=== PATIENT | female | born 1975 | race Hispanic/Latino ===

== ENCOUNTER → 2016-05-25 | Day surgery (SDC) | payer OTHER ==
--- NOTE | 2016-05-22 13:25 | History & Physical Pre-Op ---
General Information and HPI History of Present Illness: Mrs. Deleon is a 40-year-old female with a long-standing was complaining of heel pain and a painful bunion right foot. The patient has undergone an extended course of conservative care, including shoe gear and activity modification, rest , immobilization and courses of NSAIDs. None of this is yielded her any significant relief. The patient presents today for preoperative surgical consultation. The patient was referred to our office from Reese Peterson DPM. Past History Medical History Cardiovascular: hypertension Endocrine: diabetes Surgical History Pertinent Surgical History: non-contributory Review of Systems Review of Systems: Review of systems unremarkable except for that noted in history of present illness Exam & Diagnostic Data Physical Exam: Lungs clear bilaterally. Heart sounds rate and rhythm regular. Lower extremity physical exam demonstrates intact pedal pulses bilaterally. Pulses dorsalis pedis and posterior tibial arteries are palpable bilaterally. Patient without any sensory motor deficits. Deep tendon reflexes grossly intact. Patient noted to have same and pain with palpation of plantar medial heel right. Ankle range of motion noted to be diminished, especially in dorsiflexion. Negative Tinel sign noted with percussion the posterior tibial nerve. Painful bunion right foot. Hallux is noted to be tracking in track bound. Pain with palpation and range of motion to the first metatarsophalangeal joint right. Assessment/Plan Assessment/Plan: Plantar fasciitis and painful bunion right foot. A lengthy discussion reviewing both surgical and conservative options was held the patient at bedside and the patient elected to go forward surgery despite the risks. As Ranked By This Provider Problem List: 1. Acquired hallux valgus of right foot Attending MD Review Statement Attending Statement Attending MD Statement: examined this patient
[~2016-05-25] VITALS: Ht 157.5 cm; Wt 78.0 kg
[~2016-05-25] MED LIST: GLUCOPHAGE1000 M1 PO; LANTUS SOL100 UNIT/1; LOSARTAN POTASS50 M1 PO; PROAIR HFA8.5 GM INH; TRULICITY0.75 MG/01
--- NOTE | 2016-05-25 14:09 | Operative Report ---
Operative/Inv Procedure Report Surgery Date: 05/25/16 Name of Procedure: 1. Bunionectomy right foot 2 plantar fasciotomy right foot Pre-Operative Diagnosis: 1 hallux valgus right foot 2 plantar fasciitis right foot Post-Operative Diagnosis: The same Estimated Blood Loss: scant Surgeon/Pulpwood Cutter: JAMISON TALAVERA DPM, DPM Anesthesia: moderate sedation, block Operative/Procedure Note Note: After obtaining informed consent the patient was brought to the operating room and placed on the operating table in the supine position. The patient isn't securely fastened to the operating table utilizing safety belt. After administration of IV sedation, 10 mL of 0.5% Marcaine plain was infiltrated about the patient's right ankle. A well-padded ankle tourniquet was placed about the patient's right lower extremity. 2 g of Ancef were delivered intravenously times one dose. The right foot and ankle within scrubbed prepped and draped in the usual aseptic manner. Right lower extremity was then elevated to exsanguinate the limb, which point the ankle tourniquet was inflated 250 mmHg. Digits was directed the plantar medial heel, where portals were developed with a sterile 62 K wire at 5 mm intervals along the origin on the medial slip of the plantar fascia. Following this, the [employer] micro-ablator was utilized to deliver 4 W of radiofrequency energy along the marked out pattern. Attention was then directed to the dorsomedial aspect the right foot, where a 6 cm linear incision was made just medial to the course of the extensor hallucis longus tendon. Skin was incised with a 15 blade and deepened subtenons tissues. All vital neurovascular structures were identified protected. An inverted L capsulotomy was performed exposing the medial eminence. The medial eminence was then removed with a sagittal bone saw. Attention was then directed to the interspace, where a lateral release was performed with resection of the fibular suspensory ligament and the oblique head of the abductor hallucis tendon. The extensor hallucis brevis tendon was identified and tenotomized. A Chevron type osteotomy was then performed and the capital fragment was translated laterally and impacted upon the metatarsal shaft. It was then stabilized utilizing standard AO fixation techniques. The medial shelf was then remodeled in the wound was irrigated with copious Svensson normal sterile saline. The capsular structures were reapproximated with 3-0 Vicryl and the subcutaneous tissues reapproximated 4-0 Vicryl. The skin edges were then reapproximated with 4-0 Monocryl. The incision was dressed with Steri-Strips Xeroform 4 x 4's Kerlix and an Victor Manuel wrap. The patient was noted tolerate both procedure and anesthesia well and the patient was transported from the operating room to recovery by sent stable best assess intact all digits right foot.
== END ==
LOC: STS 03:57
DX: M20.11 Hallux valgus (acquired), right foot (principal); M72.2 Plantar fascial fibromatosis; E11.9 Type 2 diabetes mellitus without complications; Z79.84 Long term (current) use of oral hypoglycemic drugs; I10 Essential (primary) hypertension
CPT/HCPCS: 81025; 88304; J0690; J2001; J2250

== ENCOUNTER → 2016-09-28 | Day surgery (SDC) | payer OTHER ==
--- NOTE | 2016-09-25 12:33 | History & Physical Pre-Op ---
General Information and HPI History of Present Illness: Ms. Deleon is a 40-year-old female with a long-standing and worsening complaint of painful hardware right foot. The patient has undergone an extended course of conservative care, including shoe gear and activity modification, rest, immobilization, local steroid injections and NSAIDs. None of this is yielded her any significant relief. The patient presents today for preoperative surgical consultation. Allergies/Medications Allergies: Coded Allergies: Penicillins (? 09/22/16) Home Med list Albuterol Sulfate (Proair Hfa) 90 MCG HFA.AER.AD 2 PUF INH Q4-6 PRN PRN ASTHMA (Reported) Canagliflozin (Invokana) 300 MG TABLET 1 TAB PO DAILY DM II (Reported) Divalproex Sodium (Depakote ER) 500 MG TAB.ER.24H 2 TAB PO QPM MENTAL HEALTH (Reported) Dulaglutide (Trulicity) 0.75 MG/0.5 ML PEN.INJCTR DM II (Reported) Fenofibric Acid (Trilipix) 135 MG CAPSULE.DR 1 CAP PO DAILY CHOLESTEROL ( Reported) Gabapentin 300 MG CAPSULE 1 CAP PO BID PAIN (Reported) Insulin Glargine,Hum.rec.anlog (Lantus Solostar) 100 UNIT/ML (3 ML) INSULN.PEN DM II (Reported) 40 UNITS AM... 20 UNITS PM Linagliptin/Metformin HCl (Jentadueto XR 2.5 MG-1,000 MG) 2.5 MG-1,000 MG TAB.BP.24H DM II (Reported) Alverda Carbonate 300 MG TABLET 1 TAB PO DAILY MENTAL HEALTH (Reported) Losartan Potassium 50 MG TABLET 1 TAB PO DAILY HTN (Reported) Lurasidone HCl (Latuda) 40 MG TABLET 1 TAB PO QPM DEPRESSION (Reported) Methocarbamol 500 MG TABLET 1 TAB PO DAILY PAIN (Reported) Oxcarbazepine (Trileptal) 300 MG TABLET 1 TAB PO DAILY MENTAL HEALTH ( Reported) Rosuvastatin Calcium (Crestor) 5 MG TABLET 1 TAB PO DAILY CHOLESTEROL ( Reported) Trazodone HCl 50 MG TABLET 1 TAB PO QPM SLEEP (Reported) Past History Medical History Cardiovascular: hypertension Endocrine: diabetes Surgical History Pertinent Surgical History: non-contributory Review of Systems Review of Systems: Unremarkable except for that noted Mr. present illness Exam & Diagnostic Data Physical Exam: Lungs clear bilaterally. Heart sounds rate and rhythm regular. Lower extremity physical exam demonstrates intact pedal pulses bilaterally. Pulses dorsalis pedis and posterior tibial arteries are palpable bilaterally. Patient without any sensory motor deficits. Patient with palpation to the dorsal aspect of the right first metatarsophalangeal joint. Assessment/Plan Assessment/Plan: Painful hardware right foot. A lengthy discussion reviewing both surgical and conservative options was held the patient at bedside and the patient elects to go forward with surgery despite the risks. As Ranked By This Provider Problem List: 1. Pain due to internal orthopedic prosthetic devices, implants and grafts, initial encounter Attending MD Review Statement Attending Statement Attending MD Statement: examined this patient
[~2016-09-28] VITALS: Ht 157.5 cm; Wt 77.1 kg
[~2016-09-28] MED LIST changes: +CRESTOR5 M1 PO; +DEPAKOTE ER500 M1 PO; +GABAPENTIN300 M2 PO; +INVOKANA300 M1 PO; +JENTADUETO XR1 EACH; +LATUDA40 M1 PO; +LITHIUM CARBON300 M5 PO; +METHOCARBAMOL500 M1 PO; +TRAZODONE HCL50 M1 PO; +TRILEPTAL300 M1 PO; +TRILIPIX135 M1 PO
--- NOTE | 2016-09-28 09:16 | Operative Report ---
Operative/Inv Procedure Report Surgery Date: 09/28/16 Name of Procedure: 1 removal painful hardware right foot Pre-Operative Diagnosis: 1 painful retained hardware right foot Post-Operative Diagnosis: The same Estimated Blood Loss: scant Surgeon/Frog Or Oyster Farmworker: JAMISON TALAVERA DPM, DPM Anesthesia: moderate sedation, block Operative/Procedure Note Note: After obtaining informed consent the patient was brought to the operating room and placed on the operating table in the supine position. The patient was then securely fastened to the operating table utilizing safety belt. After administration of IV sedation, 10 mL of 0.5% Marcaine plain was infiltrated about the patient's right ankle. A well-padded ankle tourniquet was placed about the patient's right lower extremity. 600 mg of clindamycin were delivered intravenously times one dose the right foot and ankle within scrubbed prepped and draped in usual aseptic manner. Right lower extremity was elevated to examine to limb, which point the ankle tourniquet was inflated 250 mmHg. Attention directed to the dorsal aspect of the distal first ray, where a 3 cm linear incision was made overlying the hardware. Is deepened into the subtenons tissues. Dissection was then carried down to the periosteum was incised reflected. Was then elevated laterally and the screws were removed. The wound was then irrigated with normal sterile saline. The deep tissues reports a 4-0 Vicryl and the subtenons tissues reapproximated 4-0 Vicryl. Skin edges then reapproximated with 4-0 nylon. Incision was dressed with Xeroform 4 x 4's Kerlix and Victor Manuel wrap. The patient was noted tolerate both procedure and anesthesia well and the patient was transported from the operating room to recovery by sent stable best assess intact all digits right foot.
== END ==
LOC: STS 02:03
DX: T84.84XA Pain due to internal orthopedic prosthetic devices, implants and grafts, initial encounter (principal); E11.9 Type 2 diabetes mellitus without complications; Z79.84 Long term (current) use of oral hypoglycemic drugs; I10 Essential (primary) hypertension; F17.200 Nicotine dependence, unspecified, uncomplicated; J45.909 Unspecified asthma, uncomplicated
CPT/HCPCS: 81025; J2001; J2250